=== PATIENT | male | born 1975 | race Hispanic/Latino ===

== ENCOUNTER 2018-07-19 13:17 | Emergency (ER) | payer SELFPAY ==
[2018-07-19] MEDS ORDERED: TETANUS & DIPHTHERIA TOX,ADULT 0.5 ML VIAL ONE (14:02)
--- NOTE | 2018-07-19 15:01 | RAD REPORT ---
EXAM DESCRIPTION: RAD - Hand Right 3 View - 07/19/2018 2:35 pm CLINICAL HISTORY: Left hand pain, smash injury to the distal fourth digit COMPARISON: None. FINDINGS: Tuft of the fourth distal phalanx shows a fracture with no distraction or angulation. IP j oints of the fourth digit are normal. Soft tissue swelling is present in the distal finger with no ai r or foreign body. Elsewhere no additional fracture changes seen. No bone or joint acute finding. IMPRESSION: Fourth digit tuft fracture with no distraction or angulation. No foreign body in the soft tissues.
--- NOTE | 2018-07-19 15:05 | ER ---
Nurse's Notes [facility] Name: Kwaku Marquez Age: 43 yrs Sex: Male : 1975 Arrival Date: 07/19/2018 Time: 13:22 Bed 12 Private MD: Out, [facility] Diagnosis: Abrasion of right ring finger;Contusion of right ring finger with damage to nail;distal tuft fracture right ring finger Presentation: 07/19 13:34 Presenting complaint: Patient states: smashed ring finger on right hand between a door iw and a piece of iron, happened about an hour ago, swelling and bruising noted to finger nail, bleeding is controlled. Transition of care: patient was not received from another setting of care. Onset of symptoms was July 19, 2018. Risk Assessment: Do you want to hurt yourself or someone else? Patient reports no desire to harm self or others. Initial Sepsis Screen: Does the patient meet any 2 criteria? No. Patient's initial sepsis screen is negative. Does the patient have a suspected source of infection? No. Patient's initial sepsis screen is negative. Care prior to arrival: None. 13:34 Method Of Arrival: Ambulatory iw 13:34 Acuity: JUN 4 iw Historical: - Allergies: 13:37 NKA; iw - Home Meds: 13:37 Janumet 50-500 mg oral tab 1 tab 2 times per day [Active]; iw - PMHx: 13:37 Diabetes - NIDDM; iw - PSHx: 13:37 None; iw - Immunization history:: Adult Immunizations not up to date, Last tetanus immunization: unknown. - Social history:: Smoking status: Patient/guardian denies using tobacco. - Ebola Screening: : Patient negative for fever greater than or equal to 101.5 degrees Fahrenheit, and additional compatible Ebola Virus Disease symptoms Patient denies exposure to infectious person Patient denies travel to an Ebola-affected area in the 21 days before illness onset No symptoms or risks identified at this time. Screenin:41 Abuse screen: Denies threats or abuse. Denies injuries from another. Nutritional iw screening: No deficits noted. Tuberculosis screening: No symptoms or risk factors identified. Fall Risk None identified. Assessment: 14:00 General: Appears in no apparent distress. Behavior is calm, cooperative. Pain: iw Complains of pain in dorsal aspect of distal phalanx of right ring finger. Neuro: Level of Consciousness is awake, alert, obeys commands, Oriented to person, place, time, situation, Moves all extremities. Full function. Derm: Skin is healthy with good turgor. Musculoskeletal: Range of motion: limited in dorsal aspect of distal phalanx of right ring finger. Injury Description: Crush injury sustained to dorsal aspect of distal phalanx of right ring finger was sustained 30-60 minutes ago. Vital Signs: 13:37 BP 113 / 79; Pulse 81; Resp 16; Pulse Ox 98% on R/A; Weight 86.18 kg; Height 5 ft. 9 iw in. (175.26 cm); Pain 0/10; 13:37 Body Mass Index 28.06 (86.18 kg, 175.26 cm) iw ED Course: 13:22 Patient arrived in ED. sb2 13:22 Out, [facility] is Private Physician. sb2 13:32 Yolande Partida, VIN is Primary Nurse. iw 13:36 Triage completed. iw 13:38 Arm band placed on. iw 13:39 Dharmesh Jeter NP is PHCP. pm1 13:39 Russel Petty MD is Attending Physician. pm1 14:33 X-ray completed. Portable x-ray completed in exam room. Patient tolerated procedure ml well. 14:35 Hand Right 3 View XRAY In Process Unspecified. EDMS 15:35 Wound care: to avulsion located on dorsal aspect of distal phalanx of right ring finger iw was cleaned with soap and water, dressed with Neosporin, 4X4s, cling, Patient tolerated well. 15:47 No provider procedures requiring assistance completed. Patient did not have IV access iw during this emergency room visit. Administered Medications: 13:42 Not Given (Patient Refused): [place] 5 mg-325 mg 1 tabs PO once pm1 14:06 Drug: Tetanus-Diphtheria Toxoid Adult 0.5 ml {Tablet Coater: [employer]. Exp: iw 08/20/2020. Lot #: [id number]. } Route: IM; Site: right deltoid; 15:00 Follow up: Response: No adverse reaction iw 15:28 Drug: Ancef 1 grams Route: IM; Site: left gluteus; iw 15:48 Follow up: Response: No adverse reaction iw Outcome: 15:04 Discharge ordered by MD. pm1 15:48 Discharged to home ambulatory. iw 15:48 Condition: good 15:48 Discharge instructions given to patient, Instructed on discharge instructions, follow up and referral plans. medication usage, Demonstrated understanding of instructions, follow-up care, medications, Prescriptions given X 1. 15:48 Patient left the ED. iw Signatures: Dispatcher [employer] EDYolande Starr RN RN Maria Fernanda David Patrick, NP NIPPLE MAKER pm1 Nazanin Galvin sb2 Corrections: (The following items were deleted from the chart) 13:38 13:34 Presenting complaint: Patient states: smashed ring finger on right hand about an iw hour ago, swelling and bruising noted to finger nail, bleeding is controlled iw
--- NOTE | 2018-07-19 15:05 | EDPHYS ---
Physician Documentation [facility] Name: Kwaku Marquez Age: 43 yrs Sex: Male : 1975 Arrival Date: 07/19/2018 Time: 13:22 Bed 12 Private MD: Out, [facility] ED Physician Russel Petty HPI: 07/19 13:53 This 43 yrs old Male presents to ER via Ambulatory with complaints of Right pm1 ring Finger Injury. 13:53 The patient or guardian reports pain. The complaints affect the dorsal aspect of distal pm1 phalanx of right ring finger. Context: resulted from a crush injury, Two pieces of metal. Onset: The symptoms/episode began/occurred just prior to arrival. Modifying factors: The symptoms are alleviated by nothing, the symptoms are aggravated by nothing. Associated signs and symptoms: Pertinent negatives: cyanosis distally, decreased sensation distally, numbness distally, tingling distally. The patient has not experienced similar symptoms in the past. The patient has not recently seen a physician. Historical: - Allergies: 13:37 NKA; iw - Home Meds: 13:37 Janumet 50-500 mg oral tab 1 tab 2 times per day [Active]; iw - PMHx: 13:37 Diabetes - NIDDM; iw - PSHx: 13:37 None; iw - Immunization history:: Adult Immunizations not up to date, Last tetanus immunization: unknown. - Social history:: Smoking status: Patient/guardian denies using tobacco. - Ebola Screening: : Patient negative for fever greater than or equal to 101.5 degrees Fahrenheit, and additional compatible Ebola Virus Disease symptoms Patient denies exposure to infectious person Patient denies travel to an Ebola-affected area in the 21 days before illness onset No symptoms or risks identified at this time. ROS: 14:00 Constitutional: Negative for fever, chills, and weight loss, Eyes: Negative for injury, pm1 pain, redness, and discharge, ENT: Negative for injury, pain, and discharge, Neck: Negative for injury, pain, and swelling, Cardiovascular: Negative for chest pain, palpitations, and edema, Respiratory: Negative for shortness of breath, cough, wheezing, and pleuritic chest pain, Abdomen/GI: Negative for abdominal pain, nausea, vomiting, diarrhea, and constipation, Back: Negative for injury and pain. 14:00 Neuro: Negative for headache, weakness, numbness, tingling, and seizure. 14:00 MS/extremity: Positive for abrasion, pain, of the dorsal aspect of distal phalanx of right ring finger, Negative for decreased range of motion, deformity. 14:00 Skin: Positive for abrasion(s), of the dorsal aspect of distal phalanx of right ring finger. Exam: 14:00 Constitutional: This is a well developed, well nourished patient who is awake, alert, pm1 and in no acute distress. Head/Face: Normocephalic, atraumatic. Neck: Trachea midline, no thyromegaly or masses palpated, and no cervical lymphadenopathy. Supple, full range of motion without nuchal rigidity, or vertebral point tenderness. No Meningismus. Chest/axilla: Normal chest wall appearance and motion. Nontender with no deformity. No lesions are appreciated. Cardiovascular: Regular rate and rhythm with a normal S1 and S2. No gallops, murmurs, or rubs. Normal PMI, no JVD. No pulse deficits. Respiratory: Lungs have equal breath sounds bilaterally, clear to auscultation and percussion. No rales, rhonchi or wheezes noted. No increased work of breathing, no retractions or nasal flaring. Abdomen/GI: Soft, non-tender, with normal bowel sounds. No distension or tympany. No guarding or rebound. No evidence of tenderness throughout. Back: No spinal tenderness. No costovertebral tenderness. Full range of motion. 14:00 MS/ Extremity: Pulses equal, no cyanosis. Neurovascular intact. Full, normal range of motion. 14:00 Skin: Appearance: normal except for affected area, injury, abrasion(s), small abrasion noted, of the dorsal aspect of distal phalanx of right ring finger. 14:00 Neuro: Orientation: is normal, Motor: is normal, moves all fours, Sensation: is normal, no obvious gross deficits, Gait: is steady, at a normal pace, without difficulty. Vital Signs: 13:37 BP 113 / 79; Pulse 81; Resp 16; Pulse Ox 98% on R/A; Weight 86.18 kg; Height 5 ft. 9 iw in. (175.26 cm); Pain 0/10; 13:37 Body Mass Index 28.06 (86.18 kg, 175.26 cm) iw Procedures: 14:56 Performed Trephination of right fourth finger nail with Bovie pen. Patient tolerated pm1 well. MDM: 13:42 Patient medically screened. pm1 14:56 Data reviewed: vital signs. Data interpreted: Pulse oximetry: on room air is 98 %. pm1 Interpretation: normal. Counseling: I had a detailed discussion with the patient and/or guardian regarding: the historical points, exam findings, and any diagnostic results supporting the discharge/admit diagnosis, radiology results, the need for outpatient follow up, to return to the emergency department if symptoms worsen or persist or if there are any questions or concerns that arise at home. 07/19 13:40 Order name: Hand Right 3 View XRAY; Complete Time: 15:13 pm1 07/19 14:56 Order name: Wound dressing; Complete Time: 15:14 pm1 07/19 15:18 Order name: Finger Splint; Complete Time: 15:28 pm1 Administered Medications: 13:42 Not Given (Patient Refused): [place] 5 mg-325 mg 1 tabs PO once pm1 14:06 Drug: Tetanus-Diphtheria Toxoid Adult 0.5 ml {Transverse Abdominal Muscle Nurse: [employer]. Exp: iw 08/20/2020. Lot #: [id number]. } Route: IM; Site: right deltoid; 15:00 Follow up: Response: No adverse reaction iw 15:28 Drug: Ancef 1 grams Route: IM; Site: left gluteus; iw 15:48 Follow up: Response: No adverse reaction iw Disposition: 07/20 06:39 Co-signature as Attending Physician, Russel Petty MD I agree with the assessment and dash plan of care. Disposition: 07/19/18 15:04 Discharged to Home. Impression: Contusion of right ring finger with damage to nail, Abrasion of right ring finger, distal tuft fracture right ring finger. - Condition is Stable. - Discharge Instructions: Abrasion, Finger Fracture. - Prescriptions for Keflex 500 mg Oral Capsule - take 1 capsule by ORAL route every 6 hours for 10 days; 40 capsule. - Work release form, Medication Reconciliation Form, Thank You Letter, Antibiotic Education form. - Follow up: Emergency Department; When: As needed; Reason: Worsening of condition. Follow up: Private Physician; When: 2 - 3 days; Reason: Recheck today's complaints, Continuance of care, Re-evaluation by your physician. - Problem is new. - Symptoms have improved. Signatures: Dispatcher [employer] EDRussel Dennison MD MD cha Williams, Irene, RN RN iw Dharmesh Jeter, PAU BIBLE TEACHER pm1 Corrections: (The following items were deleted from the chart) 07/19 15:15 15:04 07/19/2018 15:04 Discharged to Home. Impression: Contusion of right ring finger pm1 with damage to nailAbrasion of right ring finger. Condition is Stable. Forms are Medication Reconciliation Form, Thank You Letter, Antibiotic Education, Prescription Opioid Use. Follow up: Emergency Department; When: As needed; Reason: Worsening of condition. Follow up: Private Physician; When: 2 - 3 days; Reason: Recheck today's complaints, Continuance of care, Re-evaluation by your physician. Problem is new. Symptoms have improved. pm1 15:48 15:15 07/19/2018 15:04 Discharged to Home. Impression: Contusion of right ring finger iw with damage to nailAbrasion of right ring finger; distal tuft fracture right ring finger. Condition is Stable. Discharge Instructions: Hand Contusion, Abrasion. Prescriptions for Keflex 500 mg Oral Capsule - take 1 capsule by ORAL route every 6 hours for 10 days; 40 capsule. and Forms are Medication Reconciliation Form, Thank You Letter, Antibiotic Education. Follow up: Emergency Department; When: As needed; Reason: Worsening of condition. Follow up: Private Physician; When: 2 - 3 days; Reason: Recheck today's complaints, Continuance of care, Re-evaluation by your physician. Problem is new. Symptoms have improved. pm1
[2018-07-19] MEDS ORDERED: CEFAZOLIN SODIUM 1 GM/VIAL ONE (15:26)
[2018-07-19] MEDS ORDERED: WATER FOR INJ,STERILE 10 ML ONE (15:27)
== END 2018-07-19 15:48 | disposition home or self-care (01) ==
LOC: ER 13:17
PROC: 0H9QXZZ Drainage of Finger Nail, External Approach (ICD-10-PCS; principal; 2018-07-19)
DX: S62.634A Displaced fracture of distal phalanx of right ring finger, initial encounter for closed fracture (principal); S60.141A Contusion of right ring finger with damage to nail, initial encounter; S60.414A Abrasion of right ring finger, initial encounter; E11.9 Type 2 diabetes mellitus without complications; W23.0XXA Caught, crushed, jammed, or pinched between moving objects, initial encounter; Y93.89 Activity, other specified; Y92.9 Unspecified place or not applicable; Y99.8 Other external cause status; Z23 Encounter for immunization
CPT/HCPCS: 90714; 96372; 99283; J0690